=== PATIENT | female | born 2000 | race Caucasian/White ===

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

== ENCOUNTER → 2020-06-02 | Outpatient (REF) | payer OTHER ==
[~2020-06-02] MED LIST: ARNU1INH3; PERC5TAB12 PO; VENTAER
== END ==
LOC: M SFHCPLAZ 16:13
PROVIDERS: ATTEND Nurse Practitioner Women's Health
DX: N92.1 Excessive and frequent menstruation with irregular cycle (principal)

== ENCOUNTER → 2020-07-17 | Outpatient (REF) | payer OTHER ==
[2020-07-17 16:42] LABS: HEMOGLOBIN 14.4 g/dl (12.0-15.5); MEAN CORPUSCULAR HGB CONC 33.5 g/dl (32.0-36.5); MEAN CORPUSCULAR VOLUME 92.5 fl (80.0-96.0); PLATELET COUNT, AUTOMATED 410 10^3/uL (150-450); RED BLOOD COUNT 4.65 10^6/uL (4.00-5.40); WHITE BLOOD COUNT 7.9 10^3/uL (4.0-10.0)
[2020-07-17 16:50] LABS: ALBUMIN 3.7 GM/DL (3.2-5.2); ALT/SGPT 24 U/L (12-78); BILIRUBIN,TOTAL 0.3 MG/DL (0.2-1.0); BLOOD UREA NITROGEN 10 MG/DL (7-18); CALCIUM LEVEL 9.2 MG/DL (8.5-10.1); CARBON DIOXIDE LEVEL 28 MEQ/L (21-32); CHLORIDE LEVEL 106 MEQ/L (98-107); CHOLESTEROL LEVEL 162 MG/DL (<200); CHOLESTEROL RISK RATIO 3.446 (<5); CREATININE FOR GFR 0.77 MG/DL (0.55-1.30); FREE THYROXINE INDEX 2.8 % (1.3-4.8); GLUCOSE, FASTING 83 MG/DL (70-100); HDL CHOLESTEROL 47 MG/DL (>40); LDL CHOLESTEROL 103 MG/DL (<100); NON-HDL-C 115 MG/DL; SODIUM LEVEL 142 MEQ/L (136-145); T UPTAKE 30 % (30-39); THYROXINE (T4) 9.4 UG/DL (6.0-11.6); TOTAL PROTEIN 7.2 GM/DL (6.4-8.2); TRIGLYCERIDES LEVEL 62 MG/DL (<150)
== END ==
LOC: M SFHCCLAY 16:07
PROVIDERS: ATTEND Nurse Practitioner Family
DX: R63.5 Abnormal weight gain (principal); F41.9 Anxiety disorder, unspecified; F32.9 Major depressive disorder, single episode, unspecified

== ENCOUNTER → 2020-07-24 | Outpatient (CLI) | payer OTHER ==
--- NOTE | 2020-08-03 10:11 | REP ---
THYROID ULTRASOUND HISTORY: Weight gain. Possible thyromegaly. TECHNIQUE: Real-time sonographic evaluation of the thyroid is performed. FINDINGS: Right lobe of the thyroid measures 4.5 x 2.0 x 1.3 cm and left lobe 4.6 x 1.4 x 1.7 cm, slightly enlarged. A 3-mm hypoechoic nodule in the right upper pole is noted, as well as a 3 mm hypoechoic nodule in the left upper pole. According to TI-RADS criteria, these are benign and no follow-up is needed. IMPRESSION: Slightly enlarged thyroid. A 3-mm hypoechoic nodule in each lobe noted, these are considered benign and no follow-up is needed. MTDD
== END ==
LOC: M RAD 10:40
PROVIDERS: ATTEND Nurse Practitioner Family
DX: R63.5 Abnormal weight gain (principal); E04.2 Nontoxic multinodular goiter

== ENCOUNTER → 2020-12-18 | Outpatient (REF) | payer OTHER | LOC: M SFHCCLAY 10:53 | PROVIDERS: ATTEND Nurse Practitioner Family | DX: Z30.011 Encounter for initial prescription of contraceptive pills (principal) ==

== ENCOUNTER 2021-06-29 13:04 | Emergency (ER) | payer OTHER ==
[~2021-06-29] VITALS: Ht 162.6 cm; Wt 97.2 kg
[2021-06-29] MEDS ORDERED: RIZA10TA2 PO (13:34)
[2021-06-29] MEDS ORDERED: SETL1TAB (13:39)
[2021-06-29] MEDS ORDERED: LAMO200T3 (13:39)
[2021-06-29] MEDS ORDERED: HYDR-3363 (13:39)
[2021-06-29] MEDS ORDERED: FLUO20CA22 (13:39)
[2021-06-29] MEDS ORDERED: ONDANSETRON 4MG/2ML VIAL IV ONE (17:35)
[2021-06-29] MEDS ORDERED: ACETAMINOPHEN 500 MG TAB PO ONE (17:35)
[2021-06-29] MEDS ORDERED: NS 1,000 ML IV ONE (17:35)
[2021-06-29 21:11] VITALS: BP 124/62
== END 2021-06-29 21:14 | disposition home or self-care (01) ==
LOC: M ED 13:04
DX: U07.1 COVID-19 (principal); G43.909 Migraine, unspecified, not intractable, without status migrainosus; R11.2 Nausea with vomiting, unspecified; J45.909 Unspecified asthma, uncomplicated; F17.200 Nicotine dependence, unspecified, uncomplicated; Z88.0 Allergy status to penicillin; Z88.2 Allergy status to sulfonamides; Z88.6 Allergy status to analgesic agent; Z79.899 Other long term (current) drug therapy
CPT/HCPCS: 80047; 84702; 96361; 96374; 99284; J2405

== ENCOUNTER → 2022-11-15 | Outpatient (REF) ==
[~2022-11-15] MED LIST changes: +FLUO20CA22; +HYDR-3363; +LAMO200T3; +RIZA10TA2 PO; +SETL1TAB
[2022-11-15 13:56] LABS: RSV AMPLIFICATION NEGATIVE (NEGATIVE)
== END ==
LOC: M LABSMTC 09:56
PROVIDERS: ATTEND Family Medicine
DX: Z11.52 Encounter for screening for COVID-19 (principal)

== ENCOUNTER → 2023-06-02 | Outpatient (CLI) | payer OTHER | LOC: M RAD 16:36 | PROVIDERS: ATTEND Physician Assistant Medical | DX: J45.21 Mild intermittent asthma with (acute) exacerbation (principal) ==

== ENCOUNTER → 2023-08-01 | Outpatient (REF) | LOC: M EMP 13:47 | PROVIDERS: ATTEND Family Medicine | DX: Z11.52 Encounter for screening for COVID-19 (principal) ==

== ENCOUNTER → 2023-08-10 | Outpatient (CLI) | payer OTHER ==
[~2023-08-10] MED LIST changes: +METHACHOLINE KIT INH ONE
== END ==
LOC: M CARPUL 15:00
PROVIDERS: ATTEND Physician Assistant
DX: R06.00 Dyspnea, unspecified (principal)

== ENCOUNTER → 2023-08-29 | Outpatient (CLI) | payer OTHER | LOC: M CARPUL 14:34 | PROVIDERS: ATTEND Physician Assistant | DX: R06.00 Dyspnea, unspecified (principal) | CPT/HCPCS: 94070; 95070; J7674 ==

== ENCOUNTER → 2023-09-19 | Outpatient (REF) ==
[~2023-09-19] MED LIST changes: -METHACHOLINE KIT INH ONE
== END ==
LOC: M EMP 15:05
PROVIDERS: ATTEND Family Medicine
DX: Z11.52 Encounter for screening for COVID-19 (principal)

== ENCOUNTER → 2024-11-13 | Outpatient (REF) ==
[~2024-11-13] MED LIST changes: +FLUO-365; -FLUO20CA22
== END ==
LOC: M EMP 08:46
PROVIDERS: ATTEND Family Medicine
DX: Z11.52 Encounter for screening for COVID-19 (principal)